=== PATIENT | female | born 1995 | race Caucasian/White ===

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

== ENCOUNTER 2018-06-17 15:30 | Emergency (ER) | payer BC ==
[~2018-06-17] VITALS: Ht 154.9 cm; Wt 57.7 kg
[2018-06-17 16:08] VITALS: BP 112/69; TEMP 98.8
[2018-06-17 16:44] LABS: COLLECTION METHOD CLEAN CATCH
[2018-06-17 16:52] LABS: MUCOUS Present /lpf; PH 7 (5-8); SQUAMOUS EPITHELIAL 0-2 /hpf; URINE APPEARANCE Clear; URINE BACTERIA Rare /hpf; URINE BILIRUBIN Negative (NEGATIVE); URINE BLOOD Negative (NEGATIVE); URINE COLOR Straw; URINE GLUCOSE Negative (NEGATIVE); URINE KETONE Negative (NEGATIVE); URINE LEUKOCYTE ESTERASE 1+ (NEGATIVE); URINE NITRATE Negative (NEGATIVE); URINE PROTEIN(semi-quant) Negative (NEGATIVE); URINE RBC 0-2 /hpf; URINE UROBILINOGEN Negative (NEGATIVE)
[2018-06-17 17:52] LABS: BASO % 0.5 % (0.0-2.0); EOS # 0.1 (0.0-0.7); GRAN # 5.5 (1.4-6.5); GRAN % 64.7 % (42.2-75.2); HEMATOCRIT 38.3 % (35.0-45.0); HEMOGLOBIN 13.2 g/dl (12.0-15.0); LYMPH # 2.2 (1.2-3.4); MEAN CELL VOLUME 89 fl (80.0-95.0); MEAN CORPUSCULAR HEMOGLOBIN 31 pg (26.0-32.0); MEAN CORPUSCULAR HGB CONC 35 g/dl (33.0-37.0); MEAN PLATELET VOLUME 10.3 fl (7.4-10.4); MONO # 0.6 (0.1-0.6); MONO % 7.6 % (1.7-9.3); PLATELET COUNT 247 K/mm3 (130-400); RED BLOOD COUNT 4.33 M/mm3 (4.10-5.30); REDCELL DISTRIBUTION WIDTH-CV 12.5 % (11.5-14.5)
[2018-06-17 18:07] LABS: ALANINE AMINOTRANSFERASE 20 U/L (9-52); ALBUMIN 4.8 gm/dL (3.5-5.0); ALKALINE PHOSPHATASE 76 U/L (50-136); ANION GAP 9 mmol/L (7-16); AST,SGOT 24 U/L (15-37); BILIRUBIN,TOTAL 0.6 mg/dL (0.0-1.0); BLOOD UREA NITROGEN 8 mg/dL (7-17); C-REACTIVE PROTEIN < 0.5 mg/dL (0.0-0.9); CALCIUM 10.1 mg/dL (8.4-10.2); CARBON DIOXIDE 27 mmol/L (22-30); CHLORIDE 104 mmol/L (98-107); CREATININE, serum 0.65 mg/dL (0.52-1.25); GLUCOSE 85 mg/dL (74-106); LIPASE 35 U/L (23-300); POTASSIUM 3.8 mmol/L (3.4-5.0); SODIUM 140 mmol/L (137-145)
[2018-06-17 19:07] VITALS: PULSE 87
== END 2018-06-17 19:08 | disposition home or self-care (01) ==
LOC: COL.ER 15:30
PROVIDERS: Emergency Medicine
DX: R10.31 Right lower quadrant pain (principal); Z87.442 Personal history of urinary calculi
CPT/HCPCS: J2405; J3010; J7030; Q9967

== ENCOUNTER 2019-01-02 22:48 | Emergency (ER) | payer MEDICAID ==
[~2019-01-02] VITALS: Ht 157.5 cm; Wt 65.5 kg
[2019-01-02 22:55] VITALS: TEMP 98.2
[2019-01-02] MEDS ORDERED: PRENATAL 191 CTB PO (23:18)
[2019-01-02 23:32] LABS: COLLECTION METHOD CLEAN CATCH
[2019-01-02 23:35] LABS: BASO % 0.3 % (0.0-2.0); EOS # 0.1 (0.0-0.7); EOS % 1.3 % (0-4.0); GRAN # 6.5 (1.4-6.5); GRAN % 67.4 % (42.2-75.2); HEMATOCRIT 33.4 % (37.0-47.0); HEMOGLOBIN 11.5 g/dl (12.5-16.0); LYMPH # 2.3 (1.2-3.4); LYMPH % 23.4 % (20.0-51.0); MEAN CELL VOLUME 93 fl (80.0-100.0); MEAN CORPUSCULAR HEMOGLOBIN 32 pg (27.0-31.0); MEAN CORPUSCULAR HGB CONC 34 g/dl (33.0-37.0); MEAN PLATELET VOLUME 10.8 fl (7.4-10.4); MONO # 0.7 (0.1-0.6); MONO % 7.3 % (1.7-9.3); PLATELET COUNT 191 K/mm3 (130-400); REDCELL DISTRIBUTION WIDTH-CV 13.2 % (11.5-14.5)
[2019-01-02 23:40] LABS: PH 6 (5-8); URINE APPEARANCE Clear; URINE BACTERIA Rare /hpf; URINE BILIRUBIN Negative (NEGATIVE); URINE BLOOD Negative (NEGATIVE); URINE COLOR Straw; URINE GLUCOSE Negative (NEGATIVE); URINE KETONE Negative (NEGATIVE); URINE LEUKOCYTE ESTERASE 1+ (NEGATIVE); URINE NITRATE Negative (NEGATIVE); URINE PROTEIN(semi-quant) Negative (NEGATIVE); URINE RBC 0-2 /hpf; URINE UROBILINOGEN Negative (NEGATIVE)
[2019-01-02 23:48] LABS: ALBUMIN 3.8 gm/dL (3.5-5.0); BILIRUBIN,TOTAL 0.3 mg/dL (0.0-1.0); C-REACTIVE PROTEIN 0.6 mg/dL (0.0-0.9); CALCIUM 9.8 mg/dL (8.4-10.2); CREATININE, serum 0.52 (0.52-1.25); POTASSIUM 3.3 mmol/L (3.4-5.0); TOTAL PROTEIN 6.6 gm/dL (6.4-8.2)
[2019-01-03] MEDS ORDERED: MACROBID 1100 MG/CAP PO (00:14)
[2019-01-03 00:29] VITALS: BP 110/66; PULSE 78
== END 2019-01-03 00:29 | disposition home or self-care (01) ==
LOC: COL.ER 22:48
PROVIDERS: Physician Assistant
DX: O26.892 Other specified pregnancy related conditions, second trimester (principal); O23.92 Unspecified genitourinary tract infection in pregnancy, second trimester; S39.011A Strain of muscle, fascia and tendon of abdomen, initial encounter; Z3A.20 20 weeks gestation of pregnancy; Z90.49 Acquired absence of other specified parts of digestive tract; Z87.442 Personal history of urinary calculi; X58.XXXA Exposure to other specified factors, initial encounter
CPT/HCPCS: J7030

== ENCOUNTER 2019-05-13 14:54 | Outpatient (CLI) | payer MEDICAID ==
[~2019-05-13] VITALS: Ht 157.5 cm; Wt 73.2 kg
--- NOTE | 2019-05-13 14:40 | NUR ---
Patient ambulatory to unit accompanied by friend. Patient states she is rosaline regularly. G1L0, 38.2 weeks gestation. Denies any complications with . FHR and contraction monitors placed and explained. Patient denies any leaking of fluid or vaginal bleeding and states baby is active. SVE 1-2/-3. Assessment completed.
[~2019-05-13 14:54] MED LIST changes: +MACROBID 1100 MG/CAP PO; +PRENATAL 191 CTB PO
[2019-05-13 15:13] VITALS: BP 134/85; PULSE 100; TEMP 97.4
[2019-05-13 15:15] VITALS: BP 132/81; PULSE 84
[2019-05-13 15:45] VITALS: BP 115/59; PULSE 88
[2019-05-13 16:09] VITALS: BP 122/71; PULSE 73
--- NOTE | 2019-05-13 16:15 | NUR ---
PATIENT DISCHARGE INSTRUCTIONS REVIEWED WITH PATIENT. PATIENT STATES CONTRACTION PAIN IS COME AND GO AND RATES IT A "3" ON A 0-10 SCALE. PATIENT VERBALIZES UNDERSTANDING OF DISCHARGE INSTRUCTIONS.
== END 2019-05-13 16:15 | disposition home or self-care (01) ==
LOC: LDRO 14:54 → LDR 15:12 → LDRO 16:15
DX: O62.9 Abnormality of forces of labor, unspecified (principal); Z3A.38 38 weeks gestation of pregnancy
CPT/HCPCS: OP

== ENCOUNTER 2019-05-14 08:58 | Inpatient (IN) | payer MEDICAID ==
[2019-05-14] VITALS (50 sets, daily range): BP systolic 112–160; BP diastolic 55–86; PULSE 76–133; TEMP 98.1–101.3
[~2019-05-14] VITALS: Ht 154.9 cm; Wt 73.2 kg
--- NOTE | 2019-05-14 09:02 | NUR ---
0902-38.3 WEEK G1 PATIENT AMBULATORY TO LR4 WITH COMPLAINTS OF CONTRACTIONS SINCE 0130. PATIENT DENIES VAGINAL BLEEDING AND REPORTS GOOD MOVEMENT. REPORTS "MOISTURE" BUT NO GUSH OR TRICKLE OF FLUID. WAS SEEN ON UNIT YESTERDAY AND CERVIX WAS 2/75/-3 AT THAT TIME WITH CONTRACTIONS. AMNITEST INCONCLUSIVE, SVE NOW 3/75/-1 WITH COPIOUS AMOUNTS OF STRETCHY BLOOD TINGED DISCHARGE. FHR REACTIVE, ASSESSMENT COMPLETE. DR. REID UPDATED, SEE PHYSICIAN NOTIFICATION.
--- NOTE | 2019-05-14 09:20 | NUR ---
Amniosure discussed and patient verbalizes understanding. Test done at this time and patient tolerates well. Sent to lab.
--- NOTE | 2019-05-14 09:40 | NUR ---
0940-REVIEWED AMNIOSURE RESULTS WITH ,ORDERS TO ADMIT PATIENT. UPDATED PATIENT. 1010-IV TO LEFT HAND, BLOOD COLLECTED AND SENT TO LAB PER ORDERS. LR INFUSING PER ORDERS. 1012-PITOCIN STARTED PER ORDERS AND PROTOCOL. 1040-IVF BOLUS, PATIENT REQUESTS EPDIURAL. SLIME HESTER NOTIFIED. 1111-SINGEL SHOT ADMINISTERED BY SLIME HESTER PATIENT TOLERATED WELL. DENIES SYMPTOMS OF REACTION OR SIDE EFFECTS. 1115-PATIENT WL. RADHA CHRISTIAN TO PATIENT ROOM, BEDSIDE SHIFT REPORT GIVEN.
[2019-05-14 10:19] LABS: BASO % 0.2 % (0.0-2.0); EOS % 0.2 % (0-4.0); GRAN % 85.2 % (42.2-75.2); HEMOGLOBIN 10.5 g/dl (12.5-16.0); LYMPH % 8.1 % (20.0-51.0); MEAN CELL VOLUME 89 fl (80.0-100.0); MEAN CORPUSCULAR HEMOGLOBIN 29 pg (27.0-31.0); MEAN CORPUSCULAR HGB CONC 33 g/dl (33.0-37.0); MEAN PLATELET VOLUME 12.1 fl (7.4-10.4); MONO # 0.7 (0.1-0.6); MONO % 5.8 % (1.7-9.3); PLATELET COUNT 175 K/mm3 (130-400); REDCELL DISTRIBUTION WIDTH-CV 12.6 % (11.5-14.5)
--- NOTE | 2019-05-14 11:33 | NUR ---
REPORT TAKEN FROM Brian GOYAL RN. WILL ASSUME CARE OF PATIENT AT THIS TIME
--- NOTE | 2019-05-14 13:39 | NUR ---
1200 ATWOOD PLACED AT THIS TIME. 1305 SVE /-2 PERICARE DONE. REPOSITIONED.
--- NOTE | 2019-05-14 15:15 | NUR ---
1515-Recieved report from RADHA Bearden. SVE by this RN 5-.Repositioned WR with Peanut ball. Oral temp 99.6, patient warm to touch and "chilled." maternal HR 96bpm FHR baseline 130bpm. 1610-Patient vomitting. PRN zofran given,see EMAR 1630-Dr. Holt updated with SVE , maternal HR 90-114bpm and FHR baseline up to 145-150bpm. Maternal temp 100.3 1645-Updated MD with axillary temp per orders, see physician notification. 1657-1GM tylenol given see emar 1708-Dr. Mcdonald updated see physician notification. 1724-Ampicillian given see EMAR. 1805-SVE , repositioined sitting upright. 6-Gentamicin given, see EMAR.
--- NOTE | 2019-05-14 20:50 | NUR ---
2042- SVE OF COMPLETE 2044- PT BEGINS PUSHING WITH THIS NURSE.
--- NOTE | 2019-05-14 21:09 | NUR ---
ATWOOD DC'D, 225ML PINK TINGED URINE OUT.
--- NOTE | 2019-05-14 21:52 | NUR ---
2119- DR. ESCOBAR NOTIFIED OF IMPENDING DELIVERY, WILL COME IN AT THIS TIME. 2134- DR. ESCOBAR IN ROOM FOR DELIVERY. 2146- SPONTANEOUS VAGINAL DELIVERY OF VIABLE BABY BOY THROUGH NUCHAL CORD X1. CORD CLAMPED BY DR. ESCOBAR, CUT BY FOB. BABY TO WARMER PER MOTHER'S REQUEST, BABY CARES ASSUMED BY RADHA SCHOFIELD. 2151- SPONTANEOUS DELIVERY OF INTACT PLACENTA. DR. ESCOBAR COLLECTS CORD GASES DUE TO CHORIO. PITOCIN STARTED PER PROTOCOL. DR. ESCOBAR BEGINS REPAIR OF 2ND DEGREE LACERATION. PLACENTA CULTURES COLLECTED BY DR. ESCOBAR. PLACENTA TO PATHOLOGY.
[2019-05-15] VITALS (7 sets, daily range): BP systolic 113–126; BP diastolic 54–77; PULSE 69–107; TEMP 97.6–98.5
--- NOTE | 2019-05-15 01:00 | NUR ---
0045- PT UP TO BATHROOM, ABLE TO VOID 700MLS WITHOUT DIFFICULTY. PERICARE PERFORMED, PAD AND MESH UNDERWEAR ON. EPIDURAL REMOVED. PT TOLERATED WELL. 0100- PT TO AMBULATORY, ORIENTED TO ROOM.
[2019-05-15] MEDS ORDERED: MOTRIN 800800 MG/TAB PO (07:41)
--- NOTE | 2019-05-15 09:30 | NUR ---
Initial visit; Patient thanked Dry Yard Worker for offering congratulations and God's blessings for the of her son. Dry Yard Worker thanked family for choosing [facility].
--- NOTE | 2019-05-16 06:30 | NUR ---
Report received from off going RNMana. Care taken over by this RN.
--- NOTE | 2019-05-16 07:20 | NUR ---
VS/assessment completed. PRN pain meds given. POC discussed, d/c board updated.
[2019-05-16 07:25] VITALS: BP 129/73; PULSE 74; TEMP 97.9
== END 2019-05-16 15:00 | disposition home or self-care (01) | DRG 805 ==
LOC: LDRO 08:58 → OB 09:46 → LDR 09:46 → OB 05-15 01:00
PROVIDERS: ADMIT Obstetrics & Gynecology
PROC: 10E0XZZ Delivery of Products of Conception, External Approach (ICD-10-PCS; principal; 2019-05-14)
PROC: 0KQM0ZZ Repair Perineum Muscle, Open Approach (ICD-10-PCS; 2019-05-14)
DX: O42.92 Full-term premature rupture of membranes, unspecified as to length of time between rupture and onset of labor (principal); O41.1230 Chorioamnionitis, third trimester, not applicable or unspecified; Z37.0 Single live birth; O99.43 Diseases of the circulatory system complicating the puerperium; O69.81X0 Labor and delivery complicated by cord around neck, without compression, not applicable or unspecified; O99.02 Anemia complicating childbirth; D64.9 Anemia, unspecified; O70.1 Second degree perineal laceration during delivery; R00.0 Tachycardia, unspecified; Z37.9 Outcome of delivery, unspecified; Z3A.38 38 weeks gestation of pregnancy
CPT/HCPCS: J0290; J1580; J2405; J2590; J7120

== ENCOUNTER 2020-11-05 22:50 | Outpatient (CLI) | payer MEDICAID ==
[~2020-11-05] VITALS: Ht 154.9 cm; Wt 71.4 kg
[~2020-11-05 22:50] MED LIST changes: +MOTRIN 800800 MG/TAB PO
[2020-11-05 23:10] VITALS: BP 109/63; PULSE 81; TEMP 98
--- NOTE | 2020-11-05 23:10 | NUR ---
2310 G2L1 36.2 WEEK GEST TO LR3 WITH C/O CONSTANT UTERINE TIGHTENING STARTING ABOUT AN HOUR AGO. UTERUS PALPATED SOFT ON ADM. STATES DID NOT KNOW BOW HAD BROKE ON ITS OWN WITH THE LAST BABY AND SHE HAS BEEN VOIDING AT LEAST EVERY HOUR TONIGHT AND IS AFFRAID HER WATER HAS BROKE. EFM ON. SVE NEG AMNIOTRACE. CERVIX OUTER OS 1CM AND INNER OS CLOSED. THICK AND BALLOTABLE. NO CONTRACTIONS NOTED ON EFM OR PALPATED. ADM ASSESSMENT COMPLETED.
[2020-11-05] MEDS ORDERED: PROFE180 MG PO (23:14)
--- NOTE | 2020-11-06 00:10 | NUR ---
0010 ONE CONTRACTION NOTED ON EFM SINCE PT ADM AT 2310. SVE WITH NO CERVICAL CHANGE. BABY VERY ACTIVE SINCE ADM. 0015 DR REID NOTIFIED AND ORDER TO DIMISS TO HOME 0030 HOME WITH INSTRUCTIONS.
== END 2020-11-06 00:30 | disposition home or self-care (01) ==
LOC: LDRO 22:50 → LDR 22:50 → LDRO 11-06 00:30
DX: O62.4 Hypertonic, incoordinate, and prolonged uterine contractions (principal); Z3A.36 36 weeks gestation of pregnancy
CPT/HCPCS: OP

== ENCOUNTER 2020-11-24 23:39 | Inpatient (IN) | payer MEDICAID ==
[~2020-11-24] VITALS: Ht 154.9 cm; Wt 71.4 kg
[~2020-11-24 23:39] MED LIST changes: +PROFE180 MG PO
[2020-11-25] VITALS (27 sets, daily range): BP systolic 100–130; BP diastolic 55–74; PULSE 73–121; TEMP 97.8–99.2
[2020-11-25 01:49] LABS: BASO % 0.2 % (0.0-2.0); EOS % 0.2 % (0-4.0); GRAN % 80.1 % (42.2-75.2); HEMOGLOBIN 10.3 g/dl (12.5-16.0); LYMPH # 1.5 (1.2-3.4); LYMPH % 12.1 % (20.0-51.0); MEAN CELL VOLUME 86 fl (80.0-100.0); MEAN CORPUSCULAR HEMOGLOBIN 29 pg (27.0-31.0); MEAN CORPUSCULAR HGB CONC 34 g/dl (33.0-37.0); MEAN PLATELET VOLUME 12.2 fl (7.4-10.4); MONO # 0.8 (0.1-0.6); MONO % 6.8 % (1.7-9.3); PLATELET COUNT 143 K/mm3 (130-400); RED BLOOD COUNT 3.56 M/mm3 (4.10-5.30); REDCELL DISTRIBUTION WIDTH-CV 13.7 % (11.5-14.5)
[2020-11-25 01:50] LABS: HEMATOCRIT 30.6 % (37.0-47.0)
--- NOTE | 2020-11-25 04:14 | NUR ---
DR LANDERS NOTIFIED OF PATIENTS CERVICAL CHECK. PATIENT WILL BE ADMITTED FOR LABOR
--- NOTE | 2020-11-25 04:16 | NUR ---
PATIENT STATES SHE FEEL LIKE SHE WANTS TO PUSH. CERVICAL CHECK WAS /-2. IV AND LACTATED RINGERS STARTED. DR LANDERS NOTIFIED AND IS EN ROUTE.
--- NOTE | 2020-11-25 05:00 | NUR ---
PATIENT REQUEST EPIDURAL. JABIER PALENCIA AT BEDSIDE. SINGLE SHOT GIVEN AT 0147.PATIENT TOLERATED THE PROCEDURE WELL.
--- NOTE | 2020-11-25 06:13 | NUR ---
DR LANDERS CALLED FOR HEART TONES IN THE 180'S AND FOR MOMS HEART RATE OF 115. DR. LANDERS IS ON HIS WAY TO EVALUTATE THE PATIENT. AROM AT 0505 AND SVE /0. ORDERS RECIEVED TO START PITOCIN, AMP, GENT AND 1000 MG OF TYLENOL
--- NOTE | 2020-11-25 06:30 | NUR ---
Rests in bed, alert. Assumed care from Regina monahan Denies any discomfort or pain at this time.
--- NOTE | 2020-11-25 07:30 | NUR ---
0742 Dr. Thacker here, vag exam done. Reports complete. Prepps for delivery. 0745 Starts pushing with contractions. 0752 Spontaneous delivery of baby boy by Dr. Thacker. 0759 Spontaneous delivery of placenta by Dr. Thacker. Pitocin started at 333ccs an hour as ordered and per policy.
--- NOTE | 2020-11-25 08:00 | NUR ---
Rests in bed, alert. Repair work being done by Dr. Thacker.
--- NOTE | 2020-11-25 08:45 | NUR ---
Rests in bed, alert. Denies any pain or discomfort at this time. Holds baby lovingly.
--- NOTE | 2020-11-25 18:30 | NUR ---
Report recieved. Resting in bed, attemping to breastfeed. Updated whiteboard and reviewed POC.
[2020-11-26 01:45] VITALS: BP 114/67; PULSE 77; TEMP 97.6
[2020-11-26] MEDS ORDERED: MOTRIN 800800 MG/TAB PO (08:34)
[2020-11-26 09:30] VITALS: BP 120/70; PULSE 92; TEMP 97.6
--- NOTE | 2020-11-26 12:50 | NUR ---
Scientific Editor offered congrats to patient.
[2020-11-26 16:15] VITALS: BP 106/53; PULSE 68; TEMP 97.6
[2020-11-26 19:45] VITALS: BP 123/66; PULSE 79; TEMP 98.2
[2020-11-27 07:01] VITALS: BP 115/57; PULSE 96; TEMP 98.2
== END 2020-11-27 09:40 | disposition home or self-care (01) | DRG 768 ==
LOC: LDRO 23:39 → LDR 11-25 00:02 → LDRO 11-25 01:21 → LDR 11-25 01:22 → OB 11-25 11:00
PROVIDERS: Obstetrics & Gynecology; ADMIT Obstetrics & Gynecology
PROC: 10E0XZZ Delivery of Products of Conception, External Approach (ICD-10-PCS; principal; 2020-11-25)
PROC: 0UQJXZZ Repair Clitoris, External Approach (ICD-10-PCS; 2020-11-25)
PROC: 0KQM0ZZ Repair Perineum Muscle, Open Approach (ICD-10-PCS; 2020-11-25)
PROC: 10907ZC Drainage of Amniotic Fluid, Therapeutic from Products of Conception, Via Natural or Artificial Opening (ICD-10-PCS; 2020-11-25)
DX: O41.1230 Chorioamnionitis, third trimester, not applicable or unspecified (principal); Z37.0 Single live birth; O98.32 Other infections with a predominantly sexual mode of transmission complicating childbirth; O99.344 Other mental disorders complicating childbirth; F32.9 Major depressive disorder, single episode, unspecified; O99.02 Anemia complicating childbirth; A60.09 Herpesviral infection of other urogenital tract; D64.9 Anemia, unspecified; O76 Abnormality in fetal heart rate and rhythm complicating labor and delivery; O70.1 Second degree perineal laceration during delivery; Z3A.39 39 weeks gestation of pregnancy
CPT/HCPCS: J0290; J1580; J2400; J2590; J7120

== ENCOUNTER 2023-07-09 22:22 | Emergency (ER) | payer MEDICAID ==
[~2023-07-09] VITALS: Ht 152.4 cm; Wt 70.9 kg
[2023-07-09 22:41] VITALS: BP 160/88; TEMP 97.5
[2023-07-09] MEDS ORDERED: Acetaminophen 325 MG TAB PO ONE (23:30)
[2023-07-09] MEDS ORDERED: traMADol 50 MG TAB PO ONE (23:30)
[2023-07-09 23:48] VITALS: PULSE 66
== END 2023-07-09 23:48 | disposition home or self-care (01) ==
LOC: COL.ER 22:22
DX: S49.91XA Unspecified injury of right shoulder and upper arm, initial encounter (principal); Z98.890 Other specified postprocedural states; X50.0XXA Overexertion from strenuous movement or load, initial encounter

== ENCOUNTER 2023-10-01 13:25 | Emergency (ER) | payer MEDICAID ==
[~2023-10-01] VITALS: Ht 154.9 cm; Wt 75.0 kg
[2023-10-01 13:35] VITALS: TEMP 98.8
[2023-10-01] MEDS ORDERED: NS 1,000 ML IV ONE (13:45)
[2023-10-01] MEDS ORDERED: Ketorolac 15 MG/ML VIAL IV ONE (14:00)
[2023-10-01 14:11] LABS: BASO % 0.3 % (0.0-2.0); EOS % 0.5 % (0.0-4.0); GRAN # 7.2 K/mm3 (1.4-6.5); GRAN % 83.9 % (42.2-75.2); HEMATOCRIT 40.8 % (37.0-47.0); HEMOGLOBIN 13.9 g/dl (12.5-16.0); LYMPH # 0.7 K/mm3 (1.2-3.4); LYMPH % 7.7 % (20.0-51.0); MEAN CELL VOLUME 91 fl (80.0-100.0); MEAN CORPUSCULAR HEMOGLOBIN 31 pg (27-31); MEAN CORPUSCULAR HGB CONC 34 g/dl (33.0-37.0); MEAN PLATELET VOLUME 10.4 fl (7.4-10.4); MONO # 0.6 K/mm3 (0.1-0.6); MONO % 7.3 % (1.7-9.3); PLATELET COUNT 234 K/mm3 (130-400); RED BLOOD COUNT 4.47 M/mm3 (4.10-5.30); REDCELL DISTRIBUTION WIDTH-CV 12.3 % (11.5-14.5)
[2023-10-01 14:30] LABS: ALBUMIN 4.1 g/dL (3.5-5.0); CREATININE, serum 0.77 mg/dL (0.57-1.11); POTASSIUM 3.9 mEq/L (3.5-4.5); TOTAL PROTEIN 7.4 g/dl (6.2-8.1)
[2023-10-01 15:11] LABS: COLLECTION METHOD CLEAN CATCH
[2023-10-01 15:22] LABS: URINE APPEARANCE CLEAR (CLEAR/HAZY); URINE BLOOD NEGATIVE (NEGATIVE); URINE COLOR YELLOW (YELLOW); URINE GLUCOSE NEGATIVE (NEGATIVE); URINE KETONE NEGATIVE (NEGATIVE); URINE NITRATE NEGATIVE (NEGATIVE); URINE PROTEIN(semi-quant) NEGATIVE (NEGATIVE); URINE UROBILINOGEN 0.2 E.U/dL (0.2-1.0)
[2023-10-01] MEDS ORDERED: Iohexol 300 - 100 ML VIAL IV ONE (15:34)
[2023-10-01] MEDS ORDERED: NS 100 ML IV SCH (15:35)
[2023-10-01 17:02] VITALS: BP 107/67; PULSE 85
== END 2023-10-01 17:00 | disposition home or self-care (01) ==
LOC: COL.ER 13:25
PROVIDERS: Physician Assistant
DX: R10.11 Right upper quadrant pain (principal)
CPT/HCPCS: J1885; J7030; Q9967